=== PATIENT | male | born 1960 | race African-American/Black ===

== ENCOUNTER 2023-08-30 11:36 | Inpatient (IN) | payer OTHER ==
[2023-08-30 12:02] VITALS: BMI 33.0
[2023-08-30] MEDS ORDERED: MAG HYDROX/AL HYDROX/SIMETH 30 ML UNIT-DOSE CUP PO PRN (12:19)
[2023-08-30] MEDS ORDERED: ONDANSETRON *ODT* 4 MG TABLET SL PRN (12:19)
[2023-08-30] MEDS ORDERED: NALOXONE HCL 0.4 MG/ML VIAL IM PRN (12:19)
[2023-08-30] MEDS ORDERED: BENZOCAINE/MENTHOL (CHLORASEPTIC ) LOZENGE MM PRN (12:19)
[2023-08-30] MEDS ORDERED: MAGNESIUM HYDROX 2400MG/30ML ORAL SUSPENSION 30 ML CUP PO PRN (12:19)
[2023-08-30] MEDS ORDERED: DICYCLOMINE HCL 10 MG CAPSULE PO PRN (12:19)
[2023-08-30] MEDS ORDERED: BISMUTH SUBSALICYLATE 262 MG/15 ML BTL PO PRN (12:19)
[2023-08-30] MEDS ORDERED: POLYETHYLENE GLYCOL (HEALTHYLAX) 3350 17 GM PACKET PO PRN (12:19)
[2023-08-30] MEDS ORDERED: LOPERAMIDE HCL 2 MG CAPSULE PO PRN (12:19)
[2023-08-30] MEDS ORDERED: ACETAMINOPHEN 325 MG TABLET (FP) PO PRN (12:19)
[2023-08-30] MEDS ORDERED: LORazepam 1 MG TABLET PO PRN (12:19)
[2023-08-30] MEDS ORDERED: BENZONATATE 200 MG CAPSULE PO PRN (12:19)
[2023-08-30] MEDS ORDERED: IBUPROFEN 400 MG TABLET (FP) PO PRN (12:19)
[2023-08-30] MEDS ORDERED: hydrOXYzine PAMOATE 25 MG CAPSULE (FP) PO PRN (12:19)
[2023-08-30] MEDS ORDERED: NALOXONE HCL (KLOXXADO) 8 MG SPRAY NS PRN (12:19)
[2023-08-30] MEDS: PRENATAL VITAMINS W/ FOLIC ACID TABLET (FP) PO SCH (13:39)
[2023-08-30] MEDS: NICOTINE 21 MG/24 HOURS TOPICAL PATCH TD SCH ×2 (13:39→14:00)
[2023-08-30] MEDS: IBUPROFEN 600 MG TABLET (FP) PO PRN ×2 (14:06→22:46)
[2023-08-30] MEDS: LORazepam 2 MG TABLET PO SCH ×2 (17:05→22:42)
[2023-08-30] MEDS: METHOCARBAMOL 500 MG TABLET PO PRN (18:08)
[2023-08-30] MEDS: guaiFENesin 600 MG TABLET.ER (FP) PO PRN ×2 (18:17→22:44)
[2023-08-30] MEDS: HALOPERIDOL 5 MG TABLET PO SCH (22:42)
[2023-08-30] MEDS: MELATONIN 5 MG TABLETS PO SCH (22:42)
[2023-08-30] MEDS: THIAMINE HCL 100 MG TABLET (FP) PO SCH (22:42)
[2023-08-31] MEDS: LORazepam 2 MG TABLET PO SCH ×4 (05:56→23:55)
[2023-08-31] MEDS: PRENATAL VITAMINS W/ FOLIC ACID TABLET (FP) PO SCH (10:18)
[2023-08-31] MEDS: HALOPERIDOL 5 MG TABLET PO SCH ×2 (10:18→23:02)
[2023-08-31] MEDS: NICOTINE 21 MG/24 HOURS TOPICAL PATCH TD SCH (10:19)
[2023-08-31] MEDS: IBUPROFEN 600 MG TABLET (FP) PO PRN (10:20)
[2023-08-31 10:52] LABS: HEMATOCRIT 42.2 % (35.4-49); HEMOGLOBIN 13.3 GM/dL (11.7-16.9); MCH 24.8 pg (25.7-33.7); MCHC 31.6 g/dl (32.0-35.9); MEAN CELL VOLUME 78.6 fl (80-96); MEAN PLT VOLUME 9.3 fl (7.5-11.1); PLATELET COUNT 175 10^3/uL (134-434); RBC 5.37 M/mm3 (4.00-5.60); RDW 14.7 % (11.9-15.9); WHITE BLOOD COUNT 3.7 K/mm3 (4.0-10.0)
[2023-08-31 12:05] LABS: CHLORIDE 105 mmol/L (98-107); POTASSIUM 3.9 mmol/L (3.5-5.1); SODIUM 137 mmol/L (136-145)
[2023-08-31 12:10] LABS: HIV INTERPRETATION NEGATIVE (NEGATIVE)
[2023-08-31 12:11] LABS: ALBUMIN 2.9 g/dl (3.4-5.0); ANION GAP 6 mmol/L (4-13); BLOOD UREA NITROGEN 14.1 mg/dL (7-18); CO2 26 mmol/L (21-32); GLUCOSE,RANDOM 171 mg/dL (74-106)
[2023-08-31 12:14] LABS: CREATININE 0.7 mg/dL (0.55-1.3); SGOT/AST 25 U/L (15-37)
[2023-08-31 12:15] LABS: BILIRUBIN,TOTAL < 0.1 mg/dL (0.2-1); CALCIUM 8.9 mg/dL (8.5-10.1)
[2023-08-31 12:16] LABS: TOT PROT 6.6 g/dl (6.4-8.2)
[2023-08-31 12:17] LABS: ALK PHOS 111 U/L (45-117)
[2023-08-31 12:24] LABS: SGPT/ALT 32 U/L (13-61)
[2023-08-31] MEDS ORDERED: LACTULOSE 20 GM/30 ML UDC (FOR ORAL USE ONLY) PO ONE (16:00)
[2023-08-31] MEDS: metFORMIN HCL 500 MG TABLET (FP) PO SCH (17:29)
[2023-08-31] MEDS: THIAMINE HCL 100 MG TABLET (FP) PO SCH (23:02)
[2023-08-31] MEDS: LACTULOSE 20 GM/30 ML UDC (FOR ORAL USE ONLY) PO SCH (23:02)
[2023-08-31] MEDS: MELATONIN 5 MG TABLETS PO SCH (23:02)
[2023-09-01] MEDS: LORazepam 1 MG TABLET PO SCH ×4 (06:00→22:11)
[2023-09-01] MEDS: metFORMIN HCL 500 MG TABLET (FP) PO SCH ×2 (06:06→17:08)
[2023-09-01] MEDS: LACTULOSE 20 GM/30 ML UDC (FOR ORAL USE ONLY) PO SCH ×3 (06:06→22:10)
[2023-09-01] MEDS: NICOTINE 21 MG/24 HOURS TOPICAL PATCH TD SCH (10:50)
[2023-09-01] MEDS: PRENATAL VITAMINS W/ FOLIC ACID TABLET (FP) PO SCH (10:50)
[2023-09-01] MEDS: HALOPERIDOL 5 MG TABLET PO SCH ×2 (10:50→22:11)
[2023-09-01] MEDS: METHOCARBAMOL 500 MG TABLET PO PRN (17:40)
[2023-09-01] MEDS: THIAMINE HCL 100 MG TABLET (FP) PO SCH (22:11)
[2023-09-01] MEDS: MELATONIN 5 MG TABLETS PO SCH (22:11)
[2023-09-01] MEDS: IBUPROFEN 600 MG TABLET (FP) PO PRN (22:13)
[2023-09-01] MEDS: INSULIN SLIDING SCALE (NOVOLOG) 1 VIAL SQ SCH (23:41)
[2023-09-02] MEDS ORDERED: LORazepam 0.5 MG TABLET PO PRN
[2023-09-02] MEDS: LORazepam 0.5 MG TABLET PO SCH ×4 (05:50→22:02)
[2023-09-02] MEDS: LACTULOSE 20 GM/30 ML UDC (FOR ORAL USE ONLY) PO SCH ×3 (06:34→22:02)
[2023-09-02] MEDS: metFORMIN HCL 500 MG TABLET (FP) PO SCH ×2 (06:34→17:09)
[2023-09-02] MEDS: INSULIN SLIDING SCALE (NOVOLOG) 1 VIAL SQ SCH ×2 (07:46→17:10)
[2023-09-02] MEDS: HALOPERIDOL 5 MG TABLET PO SCH ×2 (10:30→22:02)
[2023-09-02] MEDS: PRENATAL VITAMINS W/ FOLIC ACID TABLET (FP) PO SCH (10:30)
[2023-09-02] MEDS: NICOTINE 21 MG/24 HOURS TOPICAL PATCH TD SCH (10:31)
[2023-09-02] MEDS: MELATONIN 5 MG TABLETS PO SCH (22:02)
[2023-09-02] MEDS: THIAMINE HCL 100 MG TABLET (FP) PO SCH (22:02)
[2023-09-03] MEDS ORDERED: LORazepam 0.5 MG TABLET PO ONE (05:00)
[2023-09-03] MEDS: LACTULOSE 20 GM/30 ML UDC (FOR ORAL USE ONLY) PO SCH ×3 (06:15→21:26)
[2023-09-03] MEDS: metFORMIN HCL 500 MG TABLET (FP) PO SCH ×2 (06:15→17:15)
[2023-09-03] MEDS: INSULIN SLIDING SCALE (NOVOLOG) 1 VIAL SQ SCH ×2 (07:12→17:15)
[2023-09-03] MEDS: HALOPERIDOL 5 MG TABLET PO SCH ×2 (10:48→21:25)
[2023-09-03] MEDS: PRENATAL VITAMINS W/ FOLIC ACID TABLET (FP) PO SCH (10:48)
[2023-09-03] MEDS: NICOTINE 21 MG/24 HOURS TOPICAL PATCH TD SCH (10:49)
[2023-09-03 12:52] VITALS: RESP 17
[2023-09-03] MEDS ORDERED: INSULIN (NOVOLOG) ASPART 100 UNITS/ML 10ML VIAL ONE (16:50)
[2023-09-03 17:37] VITALS: BP 142/88; PULSE 98; TEMP 98
[2023-09-03] MEDS: THIAMINE HCL 100 MG TABLET (FP) PO SCH (21:25)
[2023-09-03] MEDS: MELATONIN 5 MG TABLETS PO SCH (21:25)
== END 2023-09-03 21:40 | disposition other institution (70) | DRG 774 ==
LOC: YASAS 11:36 → Y6N 12:41
PROVIDERS: ADMIT Allergy & Immunology; ATTEND Psychiatry & Neurology Pain Medicine
PROC: HZ2ZZZZ Detoxification Services for Substance Abuse Treatment (ICD-10-PCS; principal; 2023-08-30)
DX: F10.230 Alcohol dependence with withdrawal, uncomplicated (principal); F14.20 Cocaine dependence, uncomplicated; F17.210 Nicotine dependence, cigarettes, uncomplicated; F19.282 Other psychoactive substance dependence with psychoactive substance-induced sleep disorder; F25.9 Schizoaffective disorder, unspecified; I10 Essential (primary) hypertension; E11.9 Type 2 diabetes mellitus without complications; Z79.84 Long term (current) use of oral hypoglycemic drugs; R05.9 Cough, unspecified; R79.89 Other specified abnormal findings of blood chemistry
CPT/HCPCS: 36415; 71046-TC-FY; 80053; 80307; 82140; 82962; 83036; 85027; 86780; 87389; 87635; 93005; 93010

== ENCOUNTER 2023-09-03 22:06 | Inpatient (IN) | payer OTHER ==
[~2023-09-03 22:06] MED LIST: BENZOCAINE/MENTHOL (CHLORASEPTIC ) LOZENGE MM PRN; BENZONATATE 200 MG CAPSULE PO PRN; COLLOIDAL OATMEAL 1 BAR EACH TP PRN; IBUPROFEN 400 MG TABLET (FP) PO PRN; LOPERAMIDE HCL 2 MG CAPSULE PO PRN; MAG HYDROX/AL HYDROX/SIMETH 30 ML UNIT-DOSE CUP PO PRN; MAGNESIUM HYDROX 2400MG/30ML ORAL SUSPENSION 30 ML CUP PO PRN; METHOCARBAMOL 500 MG TABLET PO PRN; NALOXONE HCL (KLOXXADO) 8 MG SPRAY NS PRN; NALOXONE HCL 0.4 MG/ML VIAL IVPUSH PRN; NICOTINE POLACRILEX 2 MG GUM BUC PRN; POLYETHYLENE GLYCOL (HEALTHYLAX) 3350 17 GM PACKET PO PRN; guaiFENesin 600 MG TABLET.ER (FP) PO PRN
[2023-09-03] MEDS: LACTULOSE 20 GM/30 ML UDC (FOR ORAL USE ONLY) PO SCH (22:13)
[2023-09-03] MEDS: THIAMINE HCL 100 MG TABLET (FP) PO SCH (22:13)
[2023-09-03] MEDS: metFORMIN HCL 500 MG TABLET (FP) PO SCH (22:13)
[2023-09-03] MEDS: MELATONIN 5 MG TABLETS PO SCH (22:13)
[2023-09-03] MEDS: HALOPERIDOL 5 MG TABLET PO SCH (22:13)
[2023-09-04] MEDS: metFORMIN HCL 500 MG TABLET (FP) PO SCH ×2 (06:29→16:54)
[2023-09-04] MEDS: LACTULOSE 20 GM/30 ML UDC (FOR ORAL USE ONLY) PO SCH ×3 (06:29→21:25)
[2023-09-04] MEDS: NICOTINE 21 MG/24 HOURS TOPICAL PATCH TD SCH (09:22)
[2023-09-04] MEDS: PRENATAL VITAMINS W/ FOLIC ACID TABLET (FP) PO SCH (09:22)
[2023-09-04] MEDS: HALOPERIDOL 5 MG TABLET PO SCH ×2 (09:22→21:24)
[2023-09-04] MEDS: IBUPROFEN 600 MG TABLET (FP) PO PRN (16:54)
[2023-09-04 16:57] LABS: EPI CELLS 2 /uL (0-25.1); HYALINE CASTS 0 /uL (0-3.1); PH,URINE 6.5 (5.0-8.0); URINE APPEARANCE CLEAR; URINE BACTERIA >9,000 /uL (0-1359); URINE BILIRUBIN NEGATIVE (NEGATIVE); URINE COLOR YELLOW; URINE GLUCOSE (UA) 2+ (NEGATIVE); URINE KETONE NEGATIVE (NEGATIVE); URINE LEUK ESTERASE TRACE (NEGATIVE); URINE NITRITE NEGATIVE (NEGATIVE); URINE PROTEIN NEGATIVE (NEGATIVE); URINE RBC 1 /uL (0-23.9); URINE UROBILINOGEN 0.2 mg/dL (0.2-1.0); URINE WBC 12 /uL (0-25.8)
[2023-09-04] MEDS: THIAMINE HCL 100 MG TABLET (FP) PO SCH (21:24)
[2023-09-04] MEDS: MELATONIN 5 MG TABLETS PO SCH (21:24)
[2023-09-05] MEDS: metFORMIN HCL 500 MG TABLET (FP) PO SCH ×2 (06:33→16:51)
[2023-09-05] MEDS: IBUPROFEN 600 MG TABLET (FP) PO PRN ×2 (06:34→19:15)
[2023-09-05] MEDS: LACTULOSE 20 GM/30 ML UDC (FOR ORAL USE ONLY) PO SCH ×3 (06:34→21:03)
[2023-09-05 06:53] VITALS: RESP 18
[2023-09-05] MEDS: PRENATAL VITAMINS W/ FOLIC ACID TABLET (FP) PO SCH (10:18)
[2023-09-05] MEDS: HALOPERIDOL 5 MG TABLET PO SCH ×2 (10:18→21:00)
[2023-09-05] MEDS: NICOTINE 21 MG/24 HOURS TOPICAL PATCH TD SCH (10:19)
[2023-09-05] MEDS: THIAMINE HCL 100 MG TABLET (FP) PO SCH (21:00)
[2023-09-05] MEDS: MELATONIN 5 MG TABLETS PO SCH (21:01)
[2023-09-05] MEDS: ACETAMINOPHEN 325 MG TABLET (FP) PO PRN (21:01)
[2023-09-05] MEDS: hydrOXYzine PAMOATE 25 MG CAPSULE (FP) PO PRN (21:02)
[2023-09-06] MEDS: metFORMIN HCL 500 MG TABLET (FP) PO SCH ×2 (06:08→17:04)
[2023-09-06] MEDS: LACTULOSE 20 GM/30 ML UDC (FOR ORAL USE ONLY) PO SCH ×3 (06:09→21:11)
[2023-09-06] MEDS: HALOPERIDOL 5 MG TABLET PO SCH ×2 (09:47→21:07)
[2023-09-06] MEDS: PRENATAL VITAMINS W/ FOLIC ACID TABLET (FP) PO SCH (09:48)
[2023-09-06] MEDS: NICOTINE 21 MG/24 HOURS TOPICAL PATCH TD SCH (09:48)
[2023-09-06] MEDS: IBUPROFEN 600 MG TABLET (FP) PO PRN ×2 (09:49→21:08)
[2023-09-06] MEDS: THIAMINE HCL 100 MG TABLET (FP) PO SCH (21:07)
[2023-09-06] MEDS: MELATONIN 5 MG TABLETS PO SCH (21:07)
[2023-09-07] MEDS: IBUPROFEN 600 MG TABLET (FP) PO PRN ×2 (03:14→21:11)
[2023-09-07] MEDS: metFORMIN HCL 500 MG TABLET (FP) PO SCH ×2 (06:29→17:35)
[2023-09-07] MEDS: LACTULOSE 20 GM/30 ML UDC (FOR ORAL USE ONLY) PO SCH ×3 (06:30→21:11)
[2023-09-07] MEDS: PRENATAL VITAMINS W/ FOLIC ACID TABLET (FP) PO SCH (09:56)
[2023-09-07] MEDS: HALOPERIDOL 5 MG TABLET PO SCH ×2 (09:56→21:11)
[2023-09-07] MEDS: NICOTINE 21 MG/24 HOURS TOPICAL PATCH TD SCH (09:56)
[2023-09-07] MEDS: THIAMINE HCL 100 MG TABLET (FP) PO SCH (21:11)
[2023-09-07] MEDS: MELATONIN 5 MG TABLETS PO SCH (21:51)
[2023-09-08] MEDS: IBUPROFEN 600 MG TABLET (FP) PO PRN ×3 (04:09→16:33)
[2023-09-08] MEDS: LACTULOSE 20 GM/30 ML UDC (FOR ORAL USE ONLY) PO SCH ×3 (06:25→21:08)
[2023-09-08] MEDS: metFORMIN HCL 500 MG TABLET (FP) PO SCH ×2 (06:26→16:33)
[2023-09-08] MEDS: HALOPERIDOL 5 MG TABLET PO SCH ×2 (09:50→21:07)
[2023-09-08] MEDS: NICOTINE 21 MG/24 HOURS TOPICAL PATCH TD SCH (09:50)
[2023-09-08] MEDS: PRENATAL VITAMINS W/ FOLIC ACID TABLET (FP) PO SCH (09:50)
[2023-09-08] MEDS: MELATONIN 5 MG TABLETS PO SCH (21:07)
[2023-09-08] MEDS: ACETAMINOPHEN 325 MG TABLET (FP) PO PRN (21:07)
[2023-09-08] MEDS: hydrOXYzine PAMOATE 25 MG CAPSULE (FP) PO PRN (21:07)
[2023-09-08] MEDS: THIAMINE HCL 100 MG TABLET (FP) PO SCH (21:07)
[2023-09-09] MEDS: IBUPROFEN 600 MG TABLET (FP) PO PRN ×3 (04:20→21:02)
[2023-09-09] MEDS: metFORMIN HCL 500 MG TABLET (FP) PO SCH ×2 (06:08→16:33)
[2023-09-09] MEDS: LACTULOSE 20 GM/30 ML UDC (FOR ORAL USE ONLY) PO SCH ×3 (06:08→21:45)
[2023-09-09] MEDS: HALOPERIDOL 5 MG TABLET PO SCH ×2 (09:44→21:01)
[2023-09-09] MEDS: NICOTINE 21 MG/24 HOURS TOPICAL PATCH TD SCH (09:45)
[2023-09-09] MEDS: METHOCARBAMOL 500 MG TABLET PO PRN (09:45)
[2023-09-09] MEDS: PRENATAL VITAMINS W/ FOLIC ACID TABLET (FP) PO SCH (09:45)
[2023-09-09] MEDS: hydrOXYzine PAMOATE 25 MG CAPSULE (FP) PO PRN ×2 (16:29→21:02)
[2023-09-09] MEDS: MELATONIN 5 MG TABLETS PO SCH (21:01)
[2023-09-09] MEDS: THIAMINE HCL 100 MG TABLET (FP) PO SCH (21:01)
[2023-09-10] MEDS: IBUPROFEN 600 MG TABLET (FP) PO PRN ×2 (02:50→21:05)
[2023-09-10] MEDS: metFORMIN HCL 500 MG TABLET (FP) PO SCH ×2 (06:12→16:32)
[2023-09-10] MEDS: LACTULOSE 20 GM/30 ML UDC (FOR ORAL USE ONLY) PO SCH (06:13)
[2023-09-10] MEDS: METHOCARBAMOL 500 MG TABLET PO PRN ×2 (06:15→21:04)
[2023-09-10] MEDS: HALOPERIDOL 5 MG TABLET PO SCH ×2 (09:40→21:04)
[2023-09-10] MEDS: PRENATAL VITAMINS W/ FOLIC ACID TABLET (FP) PO SCH (09:40)
[2023-09-10] MEDS: NICOTINE 21 MG/24 HOURS TOPICAL PATCH TD SCH (09:40)
[2023-09-10] MEDS: hydrOXYzine PAMOATE 25 MG CAPSULE (FP) PO PRN (09:41)
[2023-09-10] MEDS: ACETAMINOPHEN 325 MG TABLET (FP) PO PRN (09:41)
[2023-09-10] MEDS ORDERED: NALTREXONE HCL 50 MG TABLET PO ONE (10:45)
[2023-09-10] MEDS: RIFAXIMIN 550 MG TABLET PO SCH ×2 (11:56→21:04)
[2023-09-10] MEDS: ALBUTEROL SO4 HFA INHALER IH PRN (11:57)
[2023-09-10] MEDS: THIAMINE HCL 100 MG TABLET (FP) PO SCH (21:04)
[2023-09-10] MEDS: MELATONIN 5 MG TABLETS PO SCH (21:04)
[2023-09-11] MEDS: metFORMIN HCL 500 MG TABLET (FP) PO SCH ×2 (05:59→16:33)
[2023-09-11] MEDS: METHOCARBAMOL 500 MG TABLET PO PRN ×2 (06:03→21:04)
[2023-09-11 07:03] VITALS: BP 115/78; PULSE 81; TEMP 97.7
[2023-09-11 08:51] LABS: INR 1.05 (0.83-1.09); PROTHROMBIN TIME (PATIENT) 12.2 SEC (9.7-13.0)
[2023-09-11] MEDS: PRENATAL VITAMINS W/ FOLIC ACID TABLET (FP) PO SCH (09:42)
[2023-09-11] MEDS: HALOPERIDOL 5 MG TABLET PO SCH ×2 (09:42→21:03)
[2023-09-11] MEDS: NICOTINE 21 MG/24 HOURS TOPICAL PATCH TD SCH (09:42)
[2023-09-11] MEDS: RIFAXIMIN 550 MG TABLET PO SCH ×2 (09:43→21:03)
[2023-09-11] MEDS: hydrOXYzine PAMOATE 25 MG CAPSULE (FP) PO PRN ×2 (09:44→21:05)
[2023-09-11] MEDS: ALBUTEROL SO4 HFA INHALER IH PRN ×3 (09:44→21:03)
[2023-09-11] MEDS ORDERED: NALTREXONE HCL 50 MG TABLET PO SCH (10:00)
[2023-09-11] MEDS: THIAMINE HCL 100 MG TABLET (FP) PO SCH (21:03)
[2023-09-11] MEDS: MELATONIN 5 MG TABLETS PO SCH (21:03)
[2023-09-11] MEDS: IBUPROFEN 600 MG TABLET (FP) PO PRN (21:05)
[2023-09-18] MEDS ORDERED: NALTREXONE MICROSPHERES (VIVITROL) 380 MG DISP.SYRIN IM ONE (10:00)
== END 2023-09-12 01:30 | disposition home or self-care (01) | DRG 772 ==
LOC: YASAS 22:06 → Y3E 22:07 → Y5N 09-05 03:35
PROVIDERS: ADMIT Allergy & Immunology; ATTEND Psychiatry & Neurology Pain Medicine
PROC: HZ42ZZZ Group Counseling for Substance Abuse Treatment, Cognitive-Behavioral (ICD-10-PCS; principal; 2023-09-03)
DX: F10.20 Alcohol dependence, uncomplicated (principal); F14.20 Cocaine dependence, uncomplicated; F17.210 Nicotine dependence, cigarettes, uncomplicated; F25.9 Schizoaffective disorder, unspecified; I10 Essential (primary) hypertension; E11.9 Type 2 diabetes mellitus without complications; M43.6 Torticollis; Z89.022 Acquired absence of left finger(s)
CPT/HCPCS: 36415; 81003; 82140; 82962; 85610